=== PATIENT | male | born 1960 ===

== ENCOUNTER 2018-06-13 23:11 | Emergency (ER) | payer MEDICAID, OTHER ==
[2018-06-13 23:12] VITALS: BMI 19.9
[2018-06-14 05:22] VITALS: BP 132/74; PULSE 77; RESP 16; TEMP 98.5; O2SAT 95
--- NOTE | 2018-06-14 05:37 | C.PDOC ---
Time Seen by Provider: 06/13/18 23:35 Chief Complaint (Nursing): Substance Abuse Past Medical History Vital Signs: Last Vital Signs Temp 98.5 F 06/14/18 05:22 Pulse 77 06/14/18 05:22 Resp 16 06/14/18 05:22 BP 132/74 06/14/18 05:22 Pulse Ox 95 06/14/18 05:37 - Medical History PMH: Anemia, Anxiety, Arthritis (sh; back and knees), Bipolar Disorder, Depression, Hypercholesterolemia, Pancreatitis, Schizophrenia Denies: Diabetes, Hepatitis, HIV, HTN, Chronic Kidney Disease, Seizures, Sexually Transmitted Disease Surgical History: Appendectomy (?) - [facility] Procedures EXCISION OF ESOPHAGUS, ENDO, DIAGN (12/05/16) EXCISION OF STOMACH, ENDO, DIAGN (12/05/16) GROUP PSYCHOTHERAPY (08/25/17) INDIVIDUAL PSYCHOTHERAPY, COGNITIVE-BEHAVIORAL (08/25/17) INDIVIDUAL PSYCHOTHERAPY, SUPPORTIVE (08/25/17) INSPECTION OF UPPER INTESTINAL TRACT, ENDO (05/06/16) Family History: States: Unknown Family Hx - Social History Hx Tobacco Use: No Hx Alcohol Use: Yes Hx Substance Use: No - Immunization History Hx Tetanus Toxoid Vaccination: No Hx Influenza Vaccination: Yes Hx Pneumococcal Vaccination: No Physical Exam - Physical Exam Appears: Non-toxic, No Acute Distress Eye(s): bilateral: Normal Inspection, PERRL, EOMI Teeth: Normal Dentition Gingiva: Normal Appearing Chest: Symmetrical Respiratory: Normal Breath Sounds Gastrointestinal/Abdominal: Normal Exam Extremity: Bilateral: Atraumatic, No Pedal Edema, Normal Color And Temperature, Normal ROM Neurological/Psych: Oriented x3 ED Course And Treatment O2 Sat by Pulse Oximetry: 95 Disposition - Disposition Referrals: [facility] [Outside] [facility] at [facility] [Outside] [facility] [place] [Outside] Disposition: HOME/ ROUTINE Disposition Time: 05:36 Condition: GOOD Additional Instructions: return as needed Forms: [facility] (Cook Islander) - Clinical Impression Clinical Impression: Alcohol intoxication
== END 2018-06-14 06:00 | disposition home or self-care (01) ==
LOC: C.ER 23:11
DX: F10.129 Alcohol abuse with intoxication, unspecified (principal)

== ENCOUNTER 2018-11-26 12:03 | Inpatient (IN) | payer MEDICAID ==
[2018-11-26 12:03] VITALS: BMI 21.2
[2018-11-26] MEDS ORDERED: Folic Acid 1 MG, Thiamine 100 MG, Multivitamin (MVI) 10 ML in Dextrose 5% In Water 1,00... IV SCH (13:00)
[2018-11-26 13:12] LABS: BASO % 0.3 % (0.0-2.0); EOS % 0.3 % (0.0-4.0); HEMOGLOBIN 12.9 g/dL (12.0-18.0); LYMPH # 0.6 K/uL (1.0-4.3); MEAN CORPUSCULAR HEMOGLOBIN 26.8 pg (27.0-31.0); MEAN CORPUSCULAR HGB CONC 32.4 g/dL (33.0-37.0); MEAN PLATELET VOLUME 8.9 fL (7.2-11.7); MONO # 0.3 K/uL (0.0-0.8); MONO % 9.8 % (0.0-10.0); NEUT # 2.3 K/uL (1.8-7.0); NEUT % 71.6 % (50.0-75.0); RBC 4.81 Mil/uL (4.40-5.90); RED CELL DISTRIBUTION WIDTH 15.4 % (11.5-14.5); WHITE BLOOD COUNT 3.2 K/uL (4.8-10.8)
[2018-11-26 13:13] LABS: MEAN CELL VOLUME 82.9 fL (80.0-94.0); URINE BILIRUBIN NEGATIVE (NEGATIVE); URINE BLOOD NEGATIVE (NEGATIVE); URINE CLARITY Clear (Clear); URINE COLOR Yellow (YELLOW); URINE GLUCOSE (UA) NORMAL (Normal); URINE LEUKOCYTE ESTERASE NEG Leu/uL (Negative); URINE PROTEIN 2+ mg/dL (NEGATIVE); URINE UROBILINOGEN NORMAL mg/dL (0.2-1.0)
[2018-11-26 13:29] LABS: BARBITURATES, UR NEGATIVE (NEGATIVE); BENZODIAZEPINES, UR NEGATIVE (NEGATIVE); OPIATES, UR NEGATIVE (NEGATIVE); PHENCYCLIDINE, UR NEGATIVE (NEGATIVE)
[2018-11-26 14:12] LABS: ACETAMINOPHEN < 10.0 ug/mL (10.0-30.0); ALB/GLOB RATIO 1.6 (1.0-2.1); ALBUMIN 4.6 g/dL (3.5-5.0); BLOOD UREA NITROGEN 17 mg/dL (9-20); CALCIUM 8.1 mg/dl (8.6-10.4); GFR NON-AFRICAN AMERICAN > 60; SALICYLATE < 1.0 mg/dL 1
--- NOTE | 2018-11-26 14:14 | C.PDOC ---
History Of Present Illness 58yo male with history of depression and anxiety, brought to ER by ambulance for evaluation. Patient reports he has been on a drinking binge x 3 days and has suicidal ideation, with plan to "drink to ." He also reports generalized pain. Otherwise, patient denies any homicidal ideation or hallucinations. He also denies any vomiting, tremors, or other withdrawal symptoms. Time Seen by Provider: 11/26/18 12:17 Chief Complaint (Nursing): Chest Pain History Per: Patient History/Exam Limitations: no limitations Additional History Per: Patient Past Medical History Reviewed: Historical Data, Nursing Documentation, Vital Signs Vital Signs: Last Vital Signs Temp 98.1 F 11/26/18 12:14 Pulse 97 H 11/26/18 12:14 Resp 12 11/26/18 12:14 BP 152/80 H 11/26/18 12:14 Pulse Ox 96 11/26/18 12:14 - Medical History PMH: Anemia (pancytopenia, liver disease), Anxiety, Arthritis (back and knees), Bipolar Disorder, Depression, Hypercholesterolemia, Pancreatitis, Schizophrenia Denies: Diabetes, Hepatitis, HIV, HTN, Chronic Kidney Disease, Seizures, Sexually Transmitted Disease Surgical History: Appendectomy - [facility] Procedures EXCISION OF ESOPHAGUS, ENDO, DIAGN (12/05/16) EXCISION OF STOMACH, ENDO, DIAGN (12/05/16) GROUP PSYCHOTHERAPY (07/21/18) INDIV PSYCHOTHERAPY FOR SUBSTANCE ABUSE, PSYCHOEDUCATION (07/21/18) INDIVIDUAL PSYCHOTHERAPY, COGNITIVE-BEHAVIORAL (08/25/17) INDIVIDUAL PSYCHOTHERAPY, SUPPORTIVE (08/25/17) INSPECTION OF UPPER INTESTINAL TRACT, ENDO (05/06/16) Family History: States: Unknown Family Hx - Social History Hx Tobacco Use: No Hx Alcohol Use: Yes Hx Substance Use: Yes - Immunization History Hx Tetanus Toxoid Vaccination: No Hx Influenza Vaccination: Yes Hx Pneumococcal Vaccination: No Review Of Systems Except As Marked, All Systems Reviewed And Found Negative. Gastrointestinal: Negative for: Vomiting Musculoskeletal: Negative for: Other (tremors) Psych: Positive for: Anxiety, Depression, Suicidal ideation. Negative for: Withdrawal, Other (homicidal) Physical Exam - Physical Exam Appears: No Acute Distress, Unkempt Skin: Normal Color, Warm, Dry Head: Atraumatic, Normacephalic Eye(s): bilateral: Normal Inspection Oral Mucosa: Moist, Other (alcohol on breath) Neck: Normal ROM, Supple Chest: Symmetrical Cardiovascular: Rhythm Regular Respiratory: Normal Breath Sounds Gastrointestinal/Abdominal: Normal Exam, Soft Back: Normal Inspection Extremity: Normal ROM Neurological/Psych: Oriented x3, Other (calm, cooperative; normal affect) ED Course And Treatment - Laboratory Results Result Diagrams: 11/26/18 13:00 11/26/18 13:40 Lab Results: Urine Color Yellow (YELLOW) 11/26/18 13:00 Urine Clarity Clear (Clear) 11/26/18 13:00 Urine pH 5.0 (5.0-8.0) 11/26/18 13:00 Ur Specific [place] 1.026 (1.003-1.030) 11/26/18 13:00 Urine Protein 2+ mg/dL (NEGATIVE) H 11/26/18 13:00 Urine Glucose (UA) Normal mg/dL (Normal) 11/26/18 13:00 Urine Ketones 2+ mg/dL (NEGATIVE) H 11/26/18 13:00 Urine Blood Negative (NEGATIVE) 11/26/18 13:00 Urine Nitrate Negative (NEGATIVE) 11/26/18 13:00 Urine Bilirubin Negative (NEGATIVE) 11/26/18 13:00 Urine Urobilinogen Normal mg/dL (0.2-1.0) 11/26/18 13:00 Ur Leukocyte Esterase Neg [place]/uL (Negative) 11/26/18 13:00 Urine WBC (Auto) 1 /hpf (0-5) 11/26/18 13:00 Urine RBC (Auto) < 1 /hpf (0-3) 11/26/18 13:00 ECG: Interpreted By Me, Viewed By Me ECG Rhythm: Sinus Tachycardia Interpretation Of ECG: No ST changes Rate From EC O2 Sat by Pulse Oximetry: 96 (RA) Pulse Ox Interpretation: Normal Medical Decision Making Medical Decision Makinyo male, otherwise well, comes to ER reporting suicidal ideation Plan: -- Labs -- IV Fluids -- Crisis evaluation 1417 Patient is medically cleared Disposition Counseled Patient/Family Regarding: Studies Performed, Diagnosis - Disposition Disposition: HOSPITALIZED Disposition Time: 14:51 Condition: GUARDED Forms: [facility] (Mauritian) - Clinical Impression Clinical Impression: Acute depression, Suicidal ideations - Scribe Statement The provider has reviewed the documentation as recorded by the Saba Yanez Provider Attestation: All medical record entries made by the Scribe were at my direction and personally dictated by me. I have reviewed the chart and agree that the record accurately reflects my personal performance of the history, physical exam, medical decision making, and the department course for this patient. I have also personally directed, reviewed, and agree with the discharge instructions and disposition. Decision To Admit - Pt Status Changed To: Hospital Disposition Of: Inpatient - Admit Certification Admit to Inpatient:: After my assessment, the patient will require hospitalization for at least two midnights. This is because of the severity of symptoms shown, intensity of services needed, and/or the medical risk in this pa tient being treated as an outpatient. - InPatient: Physician Admission Certification: I certify that this patient requires 2 or more midnights of care for the following reason:: needs inpatient psych . suicidal - . Bed Request Type: Psychiatry Admitting Physician: Maria Victoria Sargent Patient Diagnosis: Acute depression, Suicidal ideations
[2018-11-26 14:16] LABS: ALT/SGPT 57 U/L (21-72); AST/SGOT 115 U/L (17-59)
--- NOTE | 2018-11-26 16:04 | PCM.BM ---
<Christiana Peter - Last Filed: 11/26/18 16:03> Treatment Plan Problems - Problems identified on initial assessmt Suicidal Ideations Date Initiated: 11/26/18 Time Initiated: 16:03 Assessment reference: NA Status: Active Substance Abuse Date Initiated: 11/26/18 Time Initiated: 16:04 Assessment reference: NA Status: Active Treatment assets and liabiliti Patient Assests: adapts well, cooperative, ADL independent, physically healthy, negotiates basic needs, cognitively intact Patient Liabilities: live alone - Milieu Protocol Maintain good personal hygiene: daily Encourage regular showers, daily Remind patient to perform daily oral care, daily Assist patient to perform ADL's Conduct patient checks and document Observation sheet: Q15 minutes Maintain personal safety: every shift Educate patient to report safety concerns to staff, every shift Monitor environment for contraband/sharps Medication safety: Monitor for expected outcome, potential side effects: every shift, Assess barriers to learning: every shift, Assess readiness for medication education: every shift <Maria Victoria Sargent - Last Filed: 12/06/18 11:18> - Diagnosis (1) Major depressive disorder, recurrent, severe with psychotic features Status: Acute Interventions: 12/06/18 11:18 * Assess/adjust medications daily and /or as needed * See patient on an individual basis 7x/week to assess symptoms of depression * Monitor for side effects & effectiveness of medications *
[2018-11-27] MEDS: Pantoprazole 40 mg EC Tab PO SCH (10:33)
[2018-11-27] MEDS: Multiple Vitamins Tab PO SCH (13:29)
--- NOTE | 2018-11-27 23:25 | PCM.PSYCH ---
Initial Psychiatric Evaluation - Initial Psychiatric Evaluation Type of Admission: Voluntary Legal Status: Capacity Chief Complaint (in patient's own words): I was drinking and hearing voices telling me to kill myself. History of Present Illness and Precipitating Events: Patient is a 58 years old, , unemployed, male with history of depression and psychosis, noncompliant with treatment was admitted due to worsening of depression, auditory hallucinations and withdrawing from the alcohol. Patient reported history of depression for last many years, noncompliant on treatment. Patient reported he was drinking alcohol and started hearing voices again telling him to kill himself and he came to the ER for evaluation and help. Denied any previous suicidal attempts. Patient reported feeling depressed with hopelessness and helplessness. Patient reported that at night when there is dark he feels more suicidal but in the hospital is feeling safe. Alcohol: Patient started drinking at 15 years of age, increased gradually, currently was drinking half gallon of vodka daily.His last drink was yesterday. His longest period of abstinence first 2 years until 3 weeks ago when he relapsed again. He denied any previous detox and no rehabs. He denied use of any other drugs including cocaine, cannabis, opioids. He denied smoking cigarettes. Patient was born in [place], moved to [facility] in [place] with asmita wright. He has 10th grade of education. Not working for last 4 months. Was working in a warehouse, laid off. Collecting unemployment. He is and has no children. His height is 5 feet 9 inches and weight is 150 pounds. Current Medications: Active Medications Generic Name Dose Route Start Last Admin Trade Name Freq PRN Reason Stop Dose Admin Clonidine HCl 0.1 mg 11/27/18 13:04 Catapres PO Q4H PRN Symptoms of alcohol withdrawl Folic Acid 1 mg 11/27/18 13:00 11/27/18 13:26 Folic Acid PO 1 mg DAILY SHAKIR Administration Gabapentin 300 mg 11/27/18 14:00 11/27/18 17:13 Neurontin PO 300 mg TID SHAKIR Administration Hydroxyzine HCl 25 mg 11/27/18 00:09 Atarax PO Q6 PRN Agitation Ibuprofen 400 mg 11/27/18 12:51 Motrin Tab PO Q6 PRN Pain, moderate (4-7) Lorazepam 2 mg 11/27/18 13:00 11/27/18 19:53 Ativan PO 12/02/18 12:59 2 mg Q4 SHAKIR Administration Taper Lorazepam 1 mg 11/27/18 13:05 Ativan PO Q4H PRN Symptoms of alcohol withdrawl Multivitamins 1 tab 11/27/18 13:00 11/27/18 13:29 Hexavitamin PO 1 tab DAILY SHAKIR Administration Pantoprazole Sodium 40 mg 11/27/18 10:00 11/27/18 10:33 Protonix Ec Tab PO 40 mg DAILY SHAKIR Administration Thiamine HCl 100 mg 11/27/18 13:00 11/27/18 13:32 Vitamin B1 Tab PO 100 mg DAILY SHAKIR Administration Trazodone HCl 50 mg 11/27/18 22:00 11/27/18 21:11 Desyrel PO 50 mg HS SHAKIR Administration Past Psychiatric History - Past Psychiatric History Previous Treatment History: None History of Abuse: None reported History of ETOH/Drug Use: See HPI History of Family Illness: Reported his brother has history of drinking alcohol. Pertinent Medical Hx (Current Medical&Sleep Prob, Allergies): Allergies Allergy/AdvReac Type Severity Reaction Status Date / Time No Known Allergies Allergy Verified 07/16/18 19:00 Pantoprazole [Protonix] 40 mg PO DAILY 11/26/18 Review of Systems - Psychiatric Psychiatric: As Per HPI, Depression, Suicidal Ideation Mental Status Examination - Personal Presentation Personal Presentation: Looks stated age - Affect Affect: Depressed - Motor Activity Motor Activity: Calm - Reliability in Providing Information Reliability in Providing Information: Fair - Speech Speech: Organized - Mood Mood: Depressed - Formal Thought Process Formal Thought Process: No Impairment (At the time of evaluation) - Hallucinations/Delusions Hallucinations: Other (None reported) Delusions: Other - Obsessions/Compulsions Obsessions: None Compulsions: None - Cognitive Functions Orientation: Person, Place, Situation, Time Sensorium: Alert Attention/Concentration: Attentive Abstract Thinking: [place] Estimate of Intelligence: Average Judgement: Intact, as evidence by: Insight regarding need for hospitalization Memory: Recent intact, as evidence by: Ability to recall events of the day, Remote intact, as evidenced by: Ability to recall historical events - Risk Risk: Withdrawal, Diminished functioning - Strength & Assets Inventory Strength & Assets Inventory: Cooperative - Limitations Limitations: Living alone DSM 5 DX - DSM 5 DSM 5 Diagnosis: Major depressive disorder recurrent severe with psychotic features. Alcohol withdrawal Alcohol use disorder severe - Recommended/Plan of Treatment Treatment Recommendations and Plan of Treatment: Patient education. Supportive therapy. CBT for relapse prevention. [place] for abstinence. Ativan taper for alcohol withdrawal symptoms. Will start mirtazapine 15 mg daily at bedtime. Will start Risperdal 3 mg at bedtime daily. Other PRN medications. Patient wants to go to short-term rehab for follow-up care after discharge from the hospital. Projected ELOS: 8-10 days Discharge Plan and Discharge Criteria: No or minimal withdrawal symptoms. No depression, no auditory hallucinations. - Smoking Cessation Smoking Cessation Initiated: No Reason for not providing: Patient does not smoke cigarettes.
[2018-11-28] MEDS: Multiple Vitamins Tab PO SCH (10:12)
[2018-11-28] MEDS: Pantoprazole 40 mg EC Tab PO SCH (10:12)
--- NOTE | 2018-11-29 09:53 | PCM.PYCHPN ---
Psychiatric Progress Note - Psychiatric Progress Note Patient seen today, length of contact: 15 min Patient Chief Complaint: I am still hearing voices Problems Identified/Issues Discussed: Patient was seen and evaluated, chart reviewed and discussed the staff. As per the staff, patient remained somewhat disorganized and internally preoccupied. He still reports depressed mood and reports at times feelings of hopelessness and helplessness. He reports auditory and visual hallucinations and some paranoia. He still reports withdrawal symptoms from drinking including anxiety, headaches and sweating. He is taking medication but denies any side effects. He needs to stay longer for stabilization of the symptoms Supportive therapy was given. Medication Change: Yes Medical Record Reviewed: Yes Mental Status Examination - Cognitive Function Orientation: Person, Place, Situation, Time Memory: Intact Attention: WNL Concentration: Poor Association: Loose Fund of Knowledge: WNL - Mood Mood: Depressed, Anxious - Affect Affect: Constricted, Depressed - Speech Speech: Soft - Formal Thought Process Formal Thought Process: Hallucinations, Delusions, Paranoia, Loosening of associations - Suicidal Ideation Suicidal Ideation: No - Homicidal Ideation Homicidal Ideation: No Goal/Treatment Plan - Goal/Treatment Plan Need for Continued Stay: Remain at risks for inpatient hospitalization, Severe depression anxiety Progress Toward Problem(s) and Goals/Treatment Plan: Major depressive disorder recurrent severe with psychotic features. Alcohol withdrawal Alcohol use disorder severe Patient education. Supportive therapy. CBT for relapse prevention. [place] for abstinence. Ativan taper for alcohol withdrawal symptoms. Mirtazapine 15 mg daily at bedtime. Risperdal 3 mg at bedtime daily. Other PRN medications. Patient wants to go to short-term rehab for follow-up care after discharge from the hospital.
[2018-11-29] MEDS: Pantoprazole 40 mg EC Tab PO SCH (10:00)
[2018-11-29] MEDS: Multiple Vitamins Tab PO SCH (10:00)
[2018-11-30] MEDS: Multiple Vitamins Tab PO SCH (09:24)
[2018-11-30] MEDS: Pantoprazole 40 mg EC Tab PO SCH (09:25)
--- NOTE | 2018-11-30 10:11 | CARD ---
APPROVED REPORT Date of service: 11/26/2018 EKG Measurement Heart [id number] <Conclusion> Sinus tachycardia Left axis deviation Abnormal ECG
[2018-12-01] MEDS: Multiple Vitamins Tab PO SCH (10:19)
[2018-12-01] MEDS: Pantoprazole 40 mg EC Tab PO SCH (10:19)
[2018-12-01] MEDS: Simethicone 80 mg Chewtab PO PRN (18:59)
[2018-12-02 06:37] VITALS: O2SAT 98
[2018-12-02] MEDS: Pantoprazole 40 mg EC Tab PO SCH (09:35)
[2018-12-02] MEDS: Multiple Vitamins Tab PO SCH (09:35)
[2018-12-02] MEDS: Aluminum Hydroxide/Magnesium Hydroxide Susp (30 mL) PO PRN (14:55)
[2018-12-03] MEDS: Multiple Vitamins Tab PO SCH (09:33)
[2018-12-03] MEDS: Pantoprazole 40 mg EC Tab PO SCH (09:33)
--- NOTE | 2018-12-03 11:27 | PCM.PYCHPN ---
Psychiatric Progress Note - Psychiatric Progress Note Patient seen today, length of contact: 15 min Patient Chief Complaint: I am still hearing voices Problems Identified/Issues Discussed: Patient was seen and evaluated, chart reviewed and discussed the staff. Patient reports of some improvement in his mood and reports of some improvement in the feelings of hopelessness and helplessness. He appears more organized and less internally paranoid than before. He reports some improvement in the auditory and visual hallucinations. He reports some improvement in the withdrawal symptoms as well. He is taking medication but denies any side effects. He needs to stay longer for stabilization of the symptoms Supportive therapy was given. Medication Change: Yes Medical Record Reviewed: Yes Mental Status Examination - Cognitive Function Orientation: Person, Place, Situation, Time Memory: Intact Attention: WNL Concentration: Poor Association: Loose Fund of Knowledge: WNL - Mood Mood: Depressed, Anxious - Affect Affect: Constricted, Depressed - Speech Speech: Soft - Formal Thought Process Formal Thought Process: Hallucinations, Delusions, Paranoia, Loosening of associations - Suicidal Ideation Suicidal Ideation: No - Homicidal Ideation Homicidal Ideation: No Goal/Treatment Plan - Goal/Treatment Plan Need for Continued Stay: Remain at risks for inpatient hospitalization, Severe depression anxiety Progress Toward Problem(s) and Goals/Treatment Plan: Major depressive disorder recurrent severe with psychotic features. Alcohol withdrawal Alcohol use disorder severe Patient education. Supportive therapy. CBT for relapse prevention. [place] for abstinence. Ativan taper for alcohol withdrawal symptoms. Mirtazapine 15 mg daily at bedtime. Risperdal 3 mg at bedtime daily. Other PRN medications. Patient wants to go to short-term rehab for follow-up care after discharge from the hospital.
--- NOTE | 2018-12-04 01:26 | PCM.PYCHPN ---
Psychiatric Progress Note - Psychiatric Progress Note Patient seen today, length of contact: 15 min Patient Chief Complaint: I am feeling little better Problems Identified/Issues Discussed: Patient was seen and evaluated, chart reviewed and discussed the staff. As per staff patient is improving and he has started socializing. Patient reports of some improvement in his mood and reports of some improvement in the feelings of hopelessness and helplessness. He appears more organized and less internally paranoid than before. He reports some improvement in the auditory and visual hallucinations. He reports some improvement in the withdrawal symptoms as well. He is taking medication but denies any side effects. He needs to stay longer for stabilization of the symptoms Supportive therapy was given. Medication Change: Yes Medical Record Reviewed: Yes Mental Status Examination - Cognitive Function Orientation: Person, Place, Situation, Time Memory: Intact Attention: WNL Concentration: Poor Association: Loose Fund of Knowledge: WNL - Mood Mood: Depressed, Anxious - Affect Affect: Constricted, Depressed - Speech Speech: Soft - Formal Thought Process Formal Thought Process: Hallucinations, Delusions, Paranoia, Loosening of associations - Suicidal Ideation Suicidal Ideation: No - Homicidal Ideation Homicidal Ideation: No Goal/Treatment Plan - Goal/Treatment Plan Need for Continued Stay: Remain at risks for inpatient hospitalization, Severe depression anxiety Progress Toward Problem(s) and Goals/Treatment Plan: Major depressive disorder recurrent severe with psychotic features. Alcohol withdrawal Alcohol use disorder severe Patient education. Supportive therapy. CBT for relapse prevention. [place] for abstinence. Ativan taper for alcohol withdrawal symptoms. Mirtazapine for depression Risperdal for paranoia Other PRN medications Neurontin for augmentation
[2018-12-04] MEDS: Multiple Vitamins Tab PO SCH (09:07)
[2018-12-04] MEDS: Pantoprazole 40 mg EC Tab PO SCH (09:07)
[2018-12-04] MEDS: guaiFENesin 100 mg/5 ml Syrup UD PO PRN ×2 (09:08→14:14)
[2018-12-04] MEDS: Aluminum Hydroxide/Magnesium Hydroxide Susp (30 mL) PO PRN (14:12)
[2018-12-04] MEDS: Simethicone 80 mg Chewtab PO PRN (14:14)
[2018-12-04] MEDS ORDERED: Magnesium Hydroxide Susp 30 ml UD PO ONE (18:02)
--- NOTE | 2018-12-04 21:26 | PCM.PYCHPN ---
Psychiatric Progress Note - Psychiatric Progress Note Patient seen today, length of contact: 15 min Medication Change: No Medical Record Reviewed: Yes Mental Status Examination - Cognitive Function Orientation: Person, Place, Situation, Time Memory: Intact Attention: WNL Concentration: Poor Association: Loose Fund of Knowledge: WNL - Mood Mood: Depressed, Anxious - Affect Affect: Constricted, Depressed - Speech Speech: Soft - Formal Thought Process Formal Thought Process: Hallucinations, Delusions, Paranoia, Loosening of associations - Suicidal Ideation Suicidal Ideation: No - Homicidal Ideation Homicidal Ideation: No Goal/Treatment Plan - Goal/Treatment Plan Need for Continued Stay: Remain at risks for inpatient hospitalization, Severe depression anxiety
[2018-12-05 07:02] VITALS: RESP 18
[2018-12-05] MEDS: Pantoprazole 40 mg EC Tab PO SCH (09:04)
[2018-12-05] MEDS: Multiple Vitamins Tab PO SCH (09:04)
[2018-12-05] MEDS: guaiFENesin 100 mg/5 ml Syrup UD PO PRN (21:07)
[2018-12-05] MEDS: Simethicone 80 mg Chewtab PO PRN (21:09)
[2018-12-06] MEDS: Multiple Vitamins Tab PO SCH (09:11)
[2018-12-06] MEDS: Pantoprazole 40 mg EC Tab PO SCH (09:11)
--- NOTE | 2018-12-06 10:09 | PCM.BM ---
<Paula Holt - Last Filed: 12/06/18 10:09> Treatment Plan Problems - Problems identified on initial assessmt Suicidal Ideations Date Initiated: 11/26/18 Time Initiated: 16:03 Assessment reference: NA Status: Active Substance Abuse Date Initiated: 11/26/18 Time Initiated: 16:04 Assessment reference: NA Status: Active Treatment assets and liabiliti Patient Assests: adapts well, cooperative, ADL independent, physically healthy, negotiates basic needs, cognitively intact Patient Liabilities: live alone - Milieu Protocol Maintain good personal hygiene: daily Encourage regular showers, daily Remind patient to perform daily oral care, daily Assist patient to perform ADL's Conduct patient checks and document Observation sheet: Q15 minutes Maintain personal safety: every shift Educate patient to report safety concerns to staff, every shift Monitor environment for contraband/sharps Medication safety: Monitor for expected outcome, potential side effects: every shift, Assess barriers to learning: every shift, Assess readiness for medication education: every shift Milieu Narrative: Major depressive disorder recurrent severe with psychotic features. Alcohol withdrawal Alcohol use disorder severe Patient education. Supportive therapy. CBT for relapse prevention. [place] for abstinence. Ativan taper for alcohol withdrawal symptoms. Mirtazapine for depression Risperdal for paranoia Other PRN medications Neurontin for augmentation Discharge/Continuing Care - Treatment Team Participation Patient/Family/SO Statement: Major depressive disorder recurrent severe with psychotic features. Alcohol withdrawal Alcohol use disorder severe Patient education. Supportive therapy. CBT for relapse prevention. [place] for abstinence. Ativan taper for alcohol withdrawal symptoms. Mirtazapine for depression Risperdal for paranoia Other PRN medications Neurontin for augmentation Treatment Plan Review - Problem Suicidal Ideations Time Initiated: 16:03 Substance Abuse Time Initiated: 16:04 - Discharge / Continuing Care Discharge to:: Home Behavioral Health Services: Intensive Outpatient Health Needs: Medications/Rx, Alcohol/Drug treatment <Odalys Cramer - Last Filed: 12/06/18 14:52> Treatment Plan Review - Problem Suicidal Ideations Date Initiated: 12/06/18 Time Initiated: 13:00 Progress toward outcomes: resolved Substance Abuse Date Initiated: 12/06/18 Time Initiated: 13:00 Progress toward outcomes: improved
[2018-12-07] MEDS: Multiple Vitamins Tab PO SCH (09:05)
[2018-12-07] MEDS: Pantoprazole 40 mg EC Tab PO SCH (09:05)
[2018-12-07 10:00] VITALS: TEMP 98
[2018-12-07 14:56] VITALS: BP 121/74; PULSE 85
[2018-12-08] MEDS: Multiple Vitamins Tab PO SCH (09:28)
[2018-12-08] MEDS: Pantoprazole 40 mg EC Tab PO SCH (09:29)
--- NOTE | 2018-12-08 10:28 | PCM.PYCHDC ---
Mental Status Examination - Mental Status Examination Orientation: Person, Place, Situation, Time Memory: Intact Mood: Neutral Affect: Constricted Speech: Soft Attention: WNL Concentration: WNL Association: WNL Fund of Knowledge: WNL Formal Thought Process: No Impairment Description of patient's judgement and insight: good, fair Psychotic Thoughts and Behaviors: denies any AVH Suicidal Ideation: No Current Homicidal Ideation?: No Discharge Summary - Discharge Note Reason for Hospitalization: Patient is a 58 years old, , unemployed, male with history of depression and psychosis, noncompliant with treatment was admitted due to worsening of depression, auditory hallucinations and withdrawing from the alcohol. Patient reported history of depression for last many years, noncompliant on treatment. Patient reported he was drinking alcohol and started hearing voices again telling him to kill himself and he came to the ER for evaluation and help. Denied any previous suicidal attempts. Patient reported feeling depressed with hopelessness and helplessness. Patient reported that at night when there is dark he feels more suicidal but in the hospital is feeling safe. Alcohol: Patient started drinking at 15 years of age, increased gradually, currently was drinking half gallon of vodka daily.His last drink was yesterday. His longest period of abstinence first 2 years until 3 weeks ago when he relapsed again. He denied any previous detox and no rehabs. He denied use of any other drugs including cocaine, cannabis, opioids. He denied smoking cigarettes. Patient was born in [place], moved to [facility] in [facility] with family. He has 10th grade of education. Not working for last 4 months. Was working in a warehouse, laid off. Collecting unemployment. He is and has no children. His height is 5 feet 9 inches and weight is 150 pounds. Consultations:: List each consultation separately and include: 1. Reason for request. 2. Findings. 3. Follow-up Summary of Hospital Course include:: 1. Description of specific treatment plan utilized for patients during their course of treatmen. 2. Summarize the time- course for resolution of acute symptoms and/or regressed behaviors. 3. Describe issues identified and worked on during hospitalization. 4. Describe medication utilized. 5. Describe medical problems identified and treated. 6. Reassessment of suicide risk - Diagnosis (1) Major depressive disorder, recurrent, severe with psychotic features Current Visit: Yes Status: Acute - Final Diagnosis (DSM 5) Condition upon Discharge: GUARDED DSM 5: Major depressive disorder recurrent severe with psychotic features. Alcohol withdrawal Alcohol use disorder severe Disposition: HOME/ ROUTINE Follow-up Treatment Plan: Major depressive disorder recurrent severe with psychotic features. Alcohol withdrawal Alcohol use disorder severe Patient education. Supportive therapy. CBT for relapse prevention. [place] for abstinence. Ativan taper for alcohol withdrawal symptoms. Mirtazapine for depression Risperdal for paranoia Other PRN medications Neurontin for augmentation Prescriptions/Medication Reconciliation: Gabapentin [Neurontin] 300 mg PO BID #60 cap Mirtazapine [Remeron] 30 mg PO HS #30 tab Pantoprazole [Protonix EC Tab] 40 mg PO DAILY #30 ect risperiDONE [RisperDAL Tab] 3 mg PO HS #30 tab traZODone [Desyrel] 50 mg PO HS #30 tab
--- NOTE | 2018-12-08 11:06 | PCM.PYCHPN ---
Psychiatric Progress Note - Psychiatric Progress Note Patient seen today, length of contact: 15 min Patient Chief Complaint: I am feeling little better Problems Identified/Issues Discussed: Patient was seen and evaluated, chart reviewed and discussed the staff. As per staff patient is improving and he has started socializing. Patient reports of some improvement in his mood and reports of some improvement in the feelings of hopelessness and helplessness. He appears more organized and less internally paranoid than before. He reports some improvement in the auditory and visual hallucinations. He reports some improvement in the withdrawal symptoms as well. He is taking medication but denies any side effects. He needs to stay longer for stabilization of the symptoms Supportive therapy was given. Medication Change: No Medical Record Reviewed: Yes Mental Status Examination - Cognitive Function Orientation: Person, Place, Situation, Time Memory: Intact Attention: WNL Concentration: WNL Association: WN Fund of Knowledge: [facility] Decription of patient's judgement and insights: good, fair - Mood Mood: Neutral - Affect Affect: Constricted - Speech Speech: Soft - Formal Thought Process Formal Thought Process: No Impairment Psychotic Thoughts and Behaviors: denies any AVH - Suicidal Ideation Suicidal Ideation: No - Homicidal Ideation Homicidal Ideation: No Goal/Treatment Plan - Goal/Treatment Plan Need for Continued Stay: Remain at risks for inpatient hospitalization, Severe depression anxiety Progress Toward Problem(s) and Goals/Treatment Plan: Major depressive disorder recurrent severe with psychotic features. Alcohol withdrawal Alcohol use disorder severe Patient education. Supportive therapy. CBT for relapse prevention. [place] for abstinence. Ativan taper for alcohol withdrawal symptoms. Mirtazapine for depression Risperdal for paranoia Other PRN medications Neurontin for augmentation
== END 2018-12-08 10:45 | disposition home or self-care (01) | DRG 430 ==
LOC: C.ER 12:03 → C.9E 14:52 → C.5E 15:13
PROVIDERS: ADMIT Psychiatry & Neurology Psychiatry; ATTEND Psychiatry & Neurology Psychiatry
PROC: GZ56ZZZ Individual Psychotherapy, Supportive (ICD-10-PCS; principal; 2018-11-26)
DX: F33.3 Major depressive disorder, recurrent, severe with psychotic symptoms (principal); F10.230 Alcohol dependence with withdrawal, uncomplicated; Y90.6 Blood alcohol level of 120-199 mg/100 ml; F41.9 Anxiety disorder, unspecified; R45.851 Suicidal ideations; Z91.19 Patient's noncompliance with other medical treatment and regimen; E78.00 Pure hypercholesterolemia, unspecified